=== PATIENT | female | born 1995 | race African-American/Black ===

== ENCOUNTER 2017-10-05 09:54 | Emergency (ER) | payer OTHER ==
[2017-10-05 10:11] VITALS: BMI 26.3
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
[2017-10-05 13:30] VITALS: BP 115/79; PULSE 81; TEMP 97.9
== END 2017-10-05 13:30 | disposition home or self-care (01) ==
LOC: JER 09:54
DX: S09.8XXA Other specified injuries of head, initial encounter (principal); G44.319 Acute post-traumatic headache, not intractable; H05.222 Edema of left orbit; M25.511 Pain in right shoulder; Y04.2XXA Assault by strike against or bumped into by another person, initial encounter; Y93.89 Activity, other specified; Y92.488 Other paved roadways as the place of occurrence of the external cause; Y07.9 Unspecified perpetrator of maltreatment and neglect
CPT/HCPCS: 70450-TC; 70486-TC; 71046-TC; 72125-TC; 73010-TC; 73060-TC-RT; 84703; 99283-25

== ENCOUNTER 2018-05-31 20:44 | Emergency (ER) | payer OTHER ==
[2018-05-31 21:06] VITALS: BP 111/69; PULSE 93; TEMP 98.1; BMI 26.5
--- NOTE | 2018-05-31 21:16 | PDOC ---
History of Present Illness - General Chief Complaint: Chest Pain Stated Complaint: CHEST PAIN Time Seen by Provider: 05/31/18 21:15 Past History - Past Medical History Allergies/Adverse Reactions: Allergies Allergy/AdvReac Type Severity Reaction Status Date / Time No Known Allergies Allergy Verified 05/06/18 17:49 Home Medications: Ambulatory Orders NK [No Known Home Medication] 10/05/17 Cancer: No Cardiac Disorders: No CVA: No COPD: No DVT: No - Reproductive History Cervical CA: No Dysfunctional Uterine Bleeding: No Ectopic : No Endometrial CA: No Polycystic Ovaries: No Therapeutic (s) & number: No Tubal Ligation: No - Suicide/Smoking/Psychosocial Hx Smoking History: Never smoked Have you smoked in the past 12 months: No Information on smoking cessation initiated: No Hx Alcohol Use: No Drug/Substance Use Hx: No Substance Use Type: None Cardiac Specific PMH - Complaint Specific PMHX Myocardial Infarction: No *Physical Exam - Vital Signs Last Vital Signs Temp Pulse Resp BP Pulse Ox 98.1 F 93 H 20 111/69 100 05/31/18 21:02 05/31/18 21:02 05/31/18 21:02 05/31/18 21:02 05/31/18 21:02
[2018-05-31] MEDS ORDERED: FAMOTIDINE 20 MG/50 ML IVPB 20 MG/50 ML MG IVPB ONE ×2 (21:44→21:57)
--- NOTE | 2018-05-31 21:53 | PDOC ---
History of Present Illness - General Chief Complaint: Chest Pain Stated Complaint: CHEST PAIN Time Seen by Provider: 05/31/18 21:15 History Source: Patient Exam Limitations: No Limitations - History of Present Illness Initial Comments: 05/31/18 21:45 Patient is a 22-year-old female with no past medical history here with complaint of lower chest pain 2 days. States pain is below her progress bilaterally radiates to the back 9/10, intermittent and is worse with movement and associated with nausea, no vomiting. She denies any injury, pushing/pulling , coughing. She is on OCP, but no recent trauma, no leg swelling, no calf pain, no cigarette. History negative for CVA/[place]/DVT/PE. PMD: has one assigned but never been PMHX: neg PSOCHX: neg etoh, drug, cig ALL: NKDA GENERAL/CONSTITUTIONAL: [No fever or chills. No weakness. No weight change.] HEAD, EYES, EARS, NOSE AND THROAT: [No change in vision. No ear pain or discharge. No sore throat.] CARDIOVASCULAR: (+) chest pain or shortness of breath.] RESPIRATORY: [No cough, wheezing, or hemoptysis.] GASTROINTESTINAL: [No nausea, vomiting, diarrhea or constipation. No rectal bleeding.] GENITOURINARY: [No dysuria, frequency, or change in urination.] MUSCULOSKELETAL: [No joint or muscle swelling or pain. No neck or back pain.] SKIN AND BREASTS: [No rash or easy bruising.] NEUROLOGIC: [No headache, vertigo, loss of consciousness, or loss of sensation.] PSYCHIATRIC: [No depression or anxiety.] ENDOCRINE: [No increased thirst. No abnormal weight change.] HEMATOLOGIC/LYMPHATIC: [No anemia, easy bleeding, or history of blood clots.] ALLERGIC/IMMUNOLOGIC: [No hives or skin allergy. No latex allergy.] GENERAL: [The patient is awake, alert, and fully oriented, in no acute distress. ] HEAD: [Normal with no signs of trauma.] EYES: [Pupils equal, round and reactive to light, extraocular movements intact, sclera anicteric, conjunctiva clear.] ENT: [Ears normal, nares patent, oropharynx clear without exudates. Moist mucous membranes.] NECK: [Normal range of motion, supple without lymphadenopathy, JVD, or masses.] LUNGS: [Breath sounds equal, clear to auscultation bilaterally. No wheezes, and no crackles, (+) tenderness lower ribs anteriorly to palp] HEART: [Regular rate and rhythm, normal S1 and S2 without murmur, rub.] ABDOMEN: [Soft, (+) tenderness epigastrum and RUQ, normoactive bowel sounds. No guarding, no rebound. No masses.] EXTREMITIES: [Normal range of motion, no edema. No clubbing or cyanosis. No cords, erythema, or tenderness.] NEUROLOGICAL: [Cranial nerves II through XII grossly intact. Normal speech, normal gait.] PSYCH: [Normal mood, normal affect.] SKIN: [Warm, Dry, normal turgor, no rashes or lesions noted.] Past History - Past Medical History Allergies/Adverse Reactions: Allergies Allergy/AdvReac Type Severity Reaction Status Date / Time No Known Allergies Allergy Verified 05/06/18 17:49 Home Medications: Ambulatory Orders NK [No Known Home Medication] 10/05/17 Cancer: No Cardiac Disorders: No CVA: No COPD: No DVT: No - Reproductive History Cervical CA: No Dysfunctional Uterine Bleeding: No Ectopic : No Endometrial CA: No Polycystic Ovaries: No Therapeutic (s) & number: No Tubal Ligation: No - Suicide/Smoking/Psychosocial Hx Smoking History: Former smoker Have you smoked in the past 12 months: No Information on smoking cessation initiated: No Hx Alcohol Use: No Drug/Substance Use Hx: No Substance Use Type: None Cardiac Specific PMH - Complaint Specific PMHX Myocardial Infarction: No *Physical Exam - Vital Signs Last Vital Signs Temp Pulse Resp BP Pulse Ox 98.1 F 93 H 20 111/69 100 05/31/18 21:02 05/31/18 21:02 05/31/18 21:02 05/31/18 21:02 05/31/18 21:02 ED Treatment Course - LABORATORY CBC & Chemistry Diagram: 05/31/18 22:42 05/31/18 22:42 - ADDITIONAL ORDERS Additional order review: Laboratory Results 05/31/18 05/31/18 22:42 22:42 Sodium 136 Potassium 4.1 Chloride 104 Carbon Dioxide 27 Anion Gap 5 L BUN 9 Creatinine 0.7 Creat Clearance w eGFR > 60 Random Glucose 80 Calcium 9.1 Total Bilirubin 0.2 AST 20 ALT 18 Alkaline Phosphatase 77 Total Protein 8.2 Albumin 4.1 Lipase 277 Beta HCG, Quant < 1.0 05/31/18 22:42 RBC 4.91 MCV 82.8 MCHC 32.9 RDW 13.9 MPV 8.6 Neutrophils % 53.1 Lymphocytes % 35.1 Monocytes % 10.1 Eosinophils % 0.7 Basophils % 1.0 - RADIOLOGY Radiology Studies Ordered: Category Date Time Status CHEST PA & LAT [RAD] Stat Radiology 05/31/18 21:43 Taken - Medications Given in the ED: ED Medications Discontinued Medications Generic Name Dose Route Start Last Admin Trade Name Alexandru PRN Reason Stop Dose Admin Famotidine/Sodium Chloride 20 mg in 50 mls @ 100 mls/hr 05/31/18 21:44 22:30 Pepcid 20 Mg Premixed Ivpb - IVPB 05/31/18 22:13 100 mls/hr ONCE ONE Administration Medical Decision Making - Medical Decision Making 05/31/18 21:45 Patient is a 22-year-old female with no past medical history here with complaint of lower chest pain 2 days. low risk for ACS. Tenderness to the epigastrum mostly symptoms are GI will get labs, pepcid, 05/31/18 21:58 EKG SR rate 7s, NAD, (-) ST-T wave changes 06/01/18 01:28 Patient eating a bag of chips in no acute distress Labs revealed no acute findings cxr: Nipple rings noted, no acute infiltrate. I discussed the physical exam findings, ancillary test results and final diagnoses with the patient. I answered all of the patient's questions. The patient was satisfied with the care received and felt comfortable with the discharge plan and treatment plan. The Patient agrees to follow up with the primary care physician within 24-72 hours. *DC/Admit/Observation/Transfer Diagnosis at time of Disposition: Chest wall pain - Discharge Dispostion Disposition: HOME Condition at time of disposition: Stable - Referrals - Patient Instructions Printed Discharge Instructions: DI for Atypical Chest Pain Additional Instructions: Your Discharge Instructions: You must call primary care physician within 24 hours to arrange follow-up. Return to the Emergency Department with any new, persistent or worsening symptoms, for fever, chills, SOB, dizziness or any other concerning changes that may occur. Take some Tylenol and Motrin for ear pain - Post Discharge Activity Forms/Work/School Notes: Back to Work
[2018-05-31 22:48] LABS: MCH 27.3 pg (25.7-33.7); MCHC 32.9 g/dl (32.0-36.0); WHITE BLOOD COUNT 6.8 K/mm3 (4.0-10.0)
[2018-05-31 22:50] LABS: EOS % 0.7 % (0-4.5); HEMATOCRIT 40.7 % (32.4-45.2); HEMOGLOBIN 13.4 GM/dL (10.7-15.3); LYMPH % 35.1 % (8-40); MEAN CELL VOLUME 82.8 fl (80-96); MEAN PLT VOLUME 8.6 fl (7.5-11.1); MONO % 10.1 % (3.8-10.2); NEUT % 53.1 % (42.8-82.8); PLATELET COUNT 276 K/MM3 (134-434); RBC 4.91 M/mm3 (3.60-5.2); RDW 13.9 % (11.6-15.6)
[2018-05-31 23:14] LABS: ALBUMIN 4.1 g/dl (3.4-5.0); ALK PHOS 77 U/L (45-117); ANION GAP 5 MMOL/L (8-16); BILIRUBIN,TOTAL 0.2 mg/dL (0.2-1); BLOOD UREA NITROGEN 9 mg/dL (7-18); CALCIUM 9.1 mg/dL (8.5-10.1); CHLORIDE 104 mmol/L (98-107); CO2 27 mmol/L (21-32); CREATININE 0.7 mg/dL (0.55-1.3); GLUCOSE,RANDOM 80 mg/dL (74-106); LIPASE 277 U/L (73-393); POTASSIUM 4.1 mmol/L (3.5-5.1); SGOT/AST 20 U/L (15-37); SGPT/ALT 18 U/L (13-61); SODIUM 136 mmol/L (136-145); TOT PROT 8.2 g/dl (6.4-8.2)
--- NOTE | 2018-06-04 14:33 | EKG ---
Test Reason : Blood Pressure : / mmHG Vent. Rate : 075 BPM Atrial Rate : 075 BPM P-R Int : 134 ms QRS Dur : 082 ms QT Int : 384 ms P-R-T Axes : 062 073 053 degrees QTc Int : 428 ms NORMAL SINUS RHYTHM WITH SINUS ARRHYTHMIA NORMAL ECG NO PREVIOUS ECGS AVAILABLE Confirmed by MARJORIE DILLON MD ([id number]) on 06/04/2018 2:33:07 PM Referred By: Confirmed By:MARJORIE DILLON MD
== END 2018-06-01 01:50 | disposition home or self-care (01) ==
LOC: JER 20:44
PROC: 3E033GC Introduction of Other Therapeutic Substance into Peripheral Vein, Percutaneous Approach (ICD-10-PCS; principal; 2018-05-31)
DX: R07.89 Other chest pain (principal)
CPT/HCPCS: 36415; 71046-TC-FY; 80053; 83690; 84702; 85025; 93005; 93010; 96365; 99282-25